=== PATIENT | male | born 1970 ===

== ENCOUNTER 2021-04-10 10:11 | Day surgery (SDC) | payer OTHER ==
[~2021-04-10] VITALS: Ht 180.3 cm; Wt 139.9 kg
[2021-04-10] VITALS (9 sets, daily range): BP systolic 112–145; BP diastolic 63–92; PULSE 69–82; TEMP 98.2
[2021-04-10 11:11] LABS: HEMATOCRIT 44.3 % (42.0-52.0); MEAN CELL VOLUME 85 fl (80.0-100.0); MEAN CORPUSCULAR HEMOGLOBIN 29 pg (27.0-31.0); MEAN CORPUSCULAR HGB CONC 34 g/dl (33.0-37.0); MEAN PLATELET VOLUME 10.2 fl (7.4-10.4); PLATELET COUNT 194 K/mm3 (130-400); REDCELL DISTRIBUTION WIDTH-CV 12.2 % (11.5-14.5)
[2021-04-10] MEDS ORDERED: LIPITOR 40MG TA40 MG PO (11:16)
[2021-04-10] MEDS ORDERED: LASIX 80MG TABL80 MG PO (11:18)
[2021-04-10 11:19] LABS: INR 1.2 (0.8-3.0); PROTHROMBIN TIME 12.8 SECONDS (9.7-12.8)
[2021-04-10] MEDS ORDERED: ASPIRIN E.C. 8181 MG PO (11:19)
[2021-04-10] MEDS ORDERED: PRINIVIL40 MG PO (11:20)
[2021-04-10] MEDS ORDERED: GLUCOPHAGE1000 MG PO (11:21)
[2021-04-10 11:22] LABS: PARTIAL THROMBOPLASTIN TIME 32.4 SECONDS (26.0-37.0)
[2021-04-10] MEDS ORDERED: COREG 25MG25 MG/TAB PO (11:22)
[2021-04-10] MEDS ORDERED: K-TAB20 PO (11:24)
[2021-04-10] MEDS ORDERED: NORVASC 10MG10 MG PO (11:24)
[2021-04-10 11:28] LABS: CALCIUM 8.9 mg/dL (8.4-10.2); CREATININE, serum 1.04 mg/dL (0.72-1.25)
--- NOTE | 2021-04-10 14:59 | NUR ---
PT RESTING IN RM 11, WAITING FOR PROCEDURE. PT WAS INFORMED OF DELAY, AND DID NOT HAVE CONCERNS ABOUT THIS. PT IS SLEEPING; HE WORKS [employer] AND DID WORK LAST NIGHT [id number]. PT HAS SONOROUS AND INTERMITTENTLY SHALLOW RESPIRATIONS, AND HE IS A MOUTH BREATHER. ON 4L/NC, PT'S SATS STILL OCCASIONALLY DIP TO 70'S, BUT ARE MOSTLY IN UPPER 80'S AND 90'S.
--- NOTE | 2021-04-10 16:00 | NUR ---
SEE MERGE DOCUMENTATION FOR MEDICATION ADMINISTRATION AND INTRA/POST PROCEDURE SEDATION ASSESSMENTS.
--- NOTE | 2021-04-10 16:30 | NUR ---
PT to express after heart cath. report was received from Vandana Bauer. Pt is awake and alert, NSR on monitor, tele initiated. TR band to rt wrist, cms intact distal. lunch ordered. call light in reach.
--- NOTE | 2021-04-10 16:45 | NUR ---
Pt has been falling asleep, O2 sats drop when pt is sleeping. Dr. Torrez is aware. O2 administered at 3l/min via oxymask keeps pt's sats >90 for the most part. Pt is easily arousable. Rt radial site looks good, no changes.
--- NOTE | 2021-04-10 19:10 | NUR ---
Pt is getting dressed at this time. TR band was deflated without any problem. site dressed with bandaid, folded 2x2 and coban. cms remains intact distal. pt is steady on his feet, denies any lightheadedness etc. IV dc'd with cath intact, dressing is applied. I reviewed dc/rx and fu instructions with pt. he verbalized understanding. Pt is waiting for his ride.
== END 2021-04-10 19:50 | disposition home or self-care (01) ==
LOC: COL.CAR 10:11
PROVIDERS: Internal Medicine Cardiovascular Disease
DX: R94.39 Abnormal result of other cardiovascular function study (principal); G47.30 Sleep apnea, unspecified; E11.9 Type 2 diabetes mellitus without complications; I11.0 Hypertensive heart disease with heart failure; I50.9 Heart failure, unspecified; E66.01 Morbid (severe) obesity due to excess calories; E78.49 Other hyperlipidemia; F17.210 Nicotine dependence, cigarettes, uncomplicated; Z79.899 Other long term (current) drug therapy; Z79.82 Long term (current) use of aspirin; Z79.84 Long term (current) use of oral hypoglycemic drugs; Z68.41 Body mass index [BMI] 40.0-44.9, adult
CPT/HCPCS: C1769; J1644; J2250; J3010; Q9967